=== PATIENT | male | born 1995 | race African-American/Black ===

== ENCOUNTER 2018-02-15 20:39 | Emergency (ER) | payer SELFPAY ==
[2018-02-16 00:12] LABS: URINE PH (Dip) POC 6.5 (5.0-8.5)
[2018-02-16 00:12] LABS: URINE BLOOD (Dip) POC Negative (NEGATIVE); URINE GLUCOSE (Dip) POC Negative (NEGATIVE); URINE KETONES (Dip) POC Negative (NEGATIVE); URINE LEUKOCYTE EST (Dip) POC Negative (NEGATIVE); URINE NITRITE (Dip) POC Negative (NEGATIVE); URINE TOTAL PROTEIN POC 1+ (NEGATIVE)
[2018-02-16] MEDS ORDERED: LIDOCAINE 2% (MDV) 20 ML INJ (00:13)
[2018-02-16] MEDS: AZITHROMYCIN 250 MG TAB PO (00:22)
[2018-02-16] MEDS: CEFTRIAXONE 250 MG INJ IM (00:22)
[2018-02-16 00:34] LABS: ADD UMIC NO; UR ASCORBIC ACID NEGATIVE (NEGATIVE); UR BILIRUBIN (Dip) NEGATIVE (NEGATIVE); UR BLOOD (Dip) NEGATIVE (NEGATIVE); UR CLARITY CLEAR (CLEAR); UR COLOR YELLOW (YELLOW); UR GLUCOSE (Dip) NEGATIVE (NEGATIVE); UR KETONES (Dip) NEGATIVE (NEGATIVE); UR LEUKOCYTE ESTERASE (Dip) NEGATIVE Leu/ul (NEGATIVE); UR NITRITE (Dip) NEGATIVE (NEGATIVE); UR SPECIFIC GRAVITY (Dip) 1.024 (1.003-1.030); UR TOTAL PROTEIN (Dip) NEGATIVE (NEGATIVE); UR UROBILINOGEN (Dip) NEGATIVE (NEGATIVE)
== END 2018-02-16 00:57 | disposition home or self-care (01) ==
LOC: FTE 02-16 00:57
DX: A64 Unspecified sexually transmitted disease (principal)
CPT/HCPCS: 81003; 87591; 96372; 99284-25